=== PATIENT | female | born 1995 | race Hispanic/Latino ===

== ENCOUNTER 2024-12-16 16:10 | Day surgery (SDC) | payer OTHER ==
[2024-12-16 18:01] LABS: Glucose, Urine (Dipstick) Negative (Negative); Leukocyte Negative (Negative); Protein, Urine (Dipstick) Negative (Neg-Trace); Specific Gravity, Urine 1.020 (1.005-1.030)
[2024-12-16 18:16] LABS: Bacteria/HPF 4+ HPF (None Seen); CAUTI Indications for Culture Pregnancy; Mucous/LPF 2+ LPF (<2+); RBC/HPF 0-3 HPF (0-3); WBC/HPF 0-3 HPF (0-3)
[2024-12-16 18:17] LABS: Urine Culture Reflex Yes Yes
[2024-12-16] MEDS: Acetaminophen 500 MG TAB PO SCH (19:29)
== END 2024-12-16 20:05 | disposition home or self-care (01) ==
LOC: CSHLD/OP 16:10
PROVIDERS: ATTEND Obstetrics & Gynecology
DX: O99.891 Other specified diseases and conditions complicating pregnancy (principal); R10.31 Right lower quadrant pain; Z3A.23 23 weeks gestation of pregnancy; Z88.0 Allergy status to penicillin
CPT/HCPCS: 76770; 76856; 81001; 87086; 99284